=== PATIENT | male | born 1990 | race Caucasian/White ===

== ENCOUNTER 2020-04-06 11:25 | Observation (INO) ==
[2020-04-06] MEDS ORDERED: Aspirin EC 81 mg TAB.EC (enteric coated) PO ONE (11:47)
[2020-04-06] MEDS ORDERED: Morphine 4 MG/ML VIAL (1 ml) IV ONE (11:59)
[2020-04-06] MEDS ORDERED: NS 0.9% 1000 ml BAG 1,000 ML IV ONE (11:59)
[2020-04-06 12:22] LABS: Urine Appearance Clear; Urine Bilirubin Negative (Negative); Urine Blood Negative (Negative); Urine Color Straw; Urine Glucose Negative (Negative); Urine Ketones Trace (Negative); Urine Nitrite Negative (Negative); Urine Protein Negative (Negative); Urine Specific Gravity 1.008 (1.010-1.030); Urine Urobilinogen Negative (Negative)
[2020-04-06 12:25] LABS: ABS Monocytes 0.8 10^3/ul (0-0.8); ABS Neutrophils 3.9 10^3/ul (1.5-7.7); Eosinophil % 0.6 %; Hematocrit 43 % (42-52); Hemoglobin 15.2 g/dL (14.0-18.0); Mean Corpuscular HGB Conc 36 g/dL (31-36); Mean Corpuscular Hemoglobin 33 pg (27-31); Mean Corpuscular Volume 91 fL (80-94); Mean Platelet Volume 8.2 fL (7.4-10.4); Nucleated Red Blood Cells % 0.1; Platelet Count 217 10^3/uL (150-450); Red Blood Count 4.67 10^6 /uL (4.18-5.48); Red Cell Distribution Width 12 % (10-15); White Blood Count 6.8 10^3/uL (3.5-10.8)
[2020-04-06 12:32] LABS: Activated Partial Thrombo Time 28.9 seconds (26.0-38.0); INR 1.03 (0.82-1.09)
[2020-04-06 12:40] LABS: Albumin 4.8 g/dL (3.2-5.2); BUN/Creatinine Ratio 19.6 (8-20); Calcium 9.8 mg/dL (8.6-10.3); EGFR African American 111.5 (>60); EGFR Non-African American 92.2 (>60); Magnesium 1.6 mg/dL (1.9-2.7); Potassium 3.6 mmol/L (3.5-5.0); Total Protein 7.8 g/dL (6.4-8.9)
[2020-04-06 12:41] LABS: Albumin/Globulin Ratio 1.6 (1-3)
[2020-04-06 12:46] LABS: CKMB ng/mL 2.6 ng/mL (0.6-6.3)
[2020-04-06] MEDS ORDERED: Cefepime 2 GM in Dextrose 2 GM/50 ML BAG IV ONE (12:58)
[2020-04-06] MEDS ORDERED: NS 0.9% 1000 ml BAG 1,000 ML IV.FLUID IV ONE (12:59)
[2020-04-06 13:01] LABS: TSH Ultra Thyroid Stim Horm 1.65 mcIU/mL (0.34-5.60)
[2020-04-06 13:25] LABS: C Reactive Protein 4.69 mg/L (<8.01)
[2020-04-06 14:26] LABS: Influenza A Molecular Negative (Negative); Influenza B Molecular Negative (Negative)
[2020-04-06] MEDS ORDERED: Magnesium Sulfate IV 1GM/100ML 1 GM/100 ML BAG IV ONE (14:37)
[2020-04-06] MEDS ORDERED: Albuterol HFA INHALER 8 gm MDI INH PRN (15:41)
[2020-04-07 05:26] LABS: ABS Eosinophils 0.2 10^3/ul (0-0.6); ABS Lymphocytes 2.3 10^3/ul (1.0-4.8); ABS Monocytes 0.8 10^3/ul (0-0.8); ABS Neutrophils 4.5 10^3/ul (1.5-7.7); Eosinophil % 2.4 %; Hematocrit 37 % (42-52); Hemoglobin 13.3 g/dL (14.0-18.0); Lymphocyte % 29.8 %; Mean Corpuscular HGB Conc 36 g/dL (31-36); Mean Corpuscular Hemoglobin 33 pg (27-31); Mean Corpuscular Volume 93 fL (80-94); Mean Platelet Volume 7.9 fL (7.4-10.4); Platelet Count 168 10^3/uL (150-450); Red Blood Count 4.01 10^6 /uL (4.18-5.48); Red Cell Distribution Width 12 % (10-15); White Blood Count 7.8 10^3/uL (3.5-10.8)
[2020-04-07 05:38] LABS: BUN/Creatinine Ratio 16.3 (8-20); Calcium 8.8 mg/dL (8.6-10.3); EGFR African American 118.5 (>60)
[2020-04-07 05:43] LABS: Potassium 3.7 mmol/L (3.5-5.0)
[2020-04-07 11:59] VITALS: BP 135/62
== END 2020-04-07 11:10 | disposition home or self-care (01) ==
LOC: ED 11:25 → MED 11:25
PROVIDERS: ADMIT Student in an Organized Health Care Education/Training Program; ATTEND Student in an Organized Health Care Education/Training Program